=== PATIENT | female | born 1960 | race Caucasian/White ===

== ENCOUNTER 2016-07-06 11:58 | Inpatient (IN) ==
--- NOTE | 2016-07-05 20:13 | Discharge Summary ---
<Hollie Silva - Last Filed: 07/05/16 20:11> Date of Encounter: 07/05/16 - Discharge Diagnosis (1) Loosening of knee joint prosthesis Priority: Primary Status: Acute Qualifiers: Encounter type: initial encounter Qualified Code(s): T84.038A - Mechanical loosening of other internal prosthetic joint, initial encounter; Z96.659 - Presence of unspecified artificial knee joint (2) HTN (hypertension) Priority: Secondary Status: Chronic Qualifiers: Hypertension type: essential hypertension Qualified Code(s): I10 - Essential (primary) hypertension - Discharge Medications Home Medications: Aspirin Enteric Coated [Aspirin EC] 325 mg PO DAILY #21 tablet.dr 07/05/16 [Rx] OxyCODONE Immed Rel [Roxicodone 5 MG] 5 - 10 mg PO Q6HR PRN #40 tablet 07/05/16 [Rx] Aspirin 81 mg PO DAILY 07/06/16 [History] Ferrous Sulfate [Iron] 325 mg PO DAILY 07/06/16 [History] Gabapentin [Neurontin] 600 mg PO TID 07/06/16 [History] Lisinopril [Zestril] 40 mg PO DAILY 07/06/16 [History] Omeprazole [PriLOSEC] 20 mg PO DAILY 07/06/16 [History] Paroxetine [Paxil] 30 mg PO DAILY 07/06/16 [History] SUMAtriptan Succinate [Imitrex] 100 mg PO DAILY PRN 07/06/16 [History] Topiramate [Topamax] 25 mg PO BID 07/06/16 [History] Trazodone HCl 100 - 300 mg PO HS 07/06/16 [History] Allergies/Adverse Reactions: Allergies No Known Allergies Allergy (Verified 07/06/16 12:30) Primary care physician: PCP NO - Patient Status Disposition: Transfer Inpatient Rehab Fac Condition: Good - Discharge Instructions Follow Up With: NO,PCP [Non-Partnered Physician] - - Hospital Course Hospital course: Ms. Salcedo is a 56 year old female - Time Spent with Patient Total time spent providing and/or coordinating discharge services: <Cecilio Camacho - Last Filed: 07/09/16 08:12> Date of Encounter: 07/09/16 Time of Encounter: 08:11 - Discharge Diagnosis (1) Obesity (BMI 35.0-39.9 without comorbidity) Status: Chronic (2) Loosening of knee joint prosthesis Priority: Primary Status: Acute Qualifiers: Encounter type: subsequent encounter Qualified Code(s): T84.038D - Mechanical loosening of other internal prosthetic joint, subsequent encounter; Z96.659 - Presence of unspecified artificial knee joint (3) HTN (hypertension) Priority: Secondary Status: Chronic Qualifiers: Hypertension type: essential hypertension Qualified Code(s): I10 - Essential (primary) hypertension (4) Chronic kidney disease, stage I Priority: Secondary Status: Chronic Primary care physician: PCP NO - Patient Status Functional capacity at discharge: uses cane/walker Overall status at discharge: patient is progressing back to baseline - Hospital Course Hospital course: Ms. Salcedo is a 56 year old female The patient had an uneventful postoperative course. They received antibiotics and physical therapy and were discharged in stable condition. There will follow -up in the office in 2 weeks. Aspirin DVT prophylaxis - Time Spent with Patient Total time spent providing and/or coordinating discharge services:
[2016-07-06] MEDS ORDERED: CeFAZolin Pre 2,000 MG/100 ML 2,000 MG/100 ML BAG IVPB ONE (12:20)
[2016-07-06] MEDS ORDERED: Plasma-Lyte A (PH 7.4) 1,000 ML IVC SCH (12:30)
--- NOTE | 2016-07-06 12:45 | History & Physical Report ---
Date of Encounter: 07/06/16 Time of Encounter: 12:43 24 Hour HP Update - Instructions Instructions: If the History and Physical is less than 30 days old and was completed prior to A.M. admission and or procedure and has NOT been updated on calendar day of procedure please complete this update prior to performing procedure. - Update Patient reports changes in Medical Condition: No Changes in examination, assessment, or condition: No Changes in Medication: No Preop tests/diagnostics Reviewed: Yes Surgery Remains Indicated: Yes Consent for Planned Operative Procedure(s) Verified: Yes - Pre-Operative Checklist Preoperative Checklist Indicated: No Prophylactic Antibiotic Ordered: Yes Is VTE Prophylaxis Indicated?: Yes
[2016-07-06] MEDS ORDERED: Famotidine 20 MG/2 ML VIAL IVP ONE (13:01)
[2016-07-06] MEDS ORDERED: Gabapentin 300 MG CAPSULE PO ONE (13:01)
[2016-07-06] MEDS ORDERED: Ringers Solution, Lactated 1,000 ML IVC SCH (13:30)
--- NOTE | 2016-07-06 13:53 | Anesthesia Evaluation PreOp ---
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 Any Significant HX Other Medical History: Renal (CKD), Other (Anxiety) Anesthesia History: No Prior Anesthetic Complications : No Alcohol Use: none Drug use: none Medications and Allergies Aspirin Enteric Coated [Aspirin EC] 325 mg PO DAILY #21 tablet.dr 07/05/16 [Rx] OxyCODONE Immed Rel [Roxicodone 5 MG] 5 - 10 mg PO Q6HR PRN #40 tablet 07/05/16 [Rx] Aspirin 81 mg PO DAILY 07/06/16 [History] Ferrous Sulfate [Iron] 325 mg PO DAILY 07/06/16 [History] Gabapentin [Neurontin] 600 mg PO TID 07/06/16 [History] Lisinopril [Zestril] 40 mg PO DAILY 07/06/16 [History] Omeprazole [PriLOSEC] 20 mg PO DAILY 07/06/16 [History] Paroxetine [Paxil] 30 mg PO DAILY 07/06/16 [History] SUMAtriptan Succinate [Imitrex] 100 mg PO DAILY PRN 07/06/16 [History] Topiramate [Topamax] 25 mg PO BID 07/06/16 [History] Trazodone HCl 100 - 300 mg PO HS 07/06/16 [History] Allergies No Known Allergies Allergy (Verified 07/06/16 12:30) - Meds/Allergy Pre-op Review Medications Reviewed: Yes Allergies Reviewed: Yes Beta Blockers on Current Med List: No Anesthesia Results - Labs Laboratory Tests 06/22/16 06/22/16 09:15 09:15 Hgb 13.0 Hct 40.4 Plt Count 253 Sodium 140 Potassium 4.6 H Creatinine 1.12 H - Imaging EKG: report reviewed (SR) Anesthesia Exam O2 Sat Height 1.58 m Height 1.58 m Height 1.58 m Weight 96.162 kg Weight 96.162 kg Weight 96.162 kg O2 Sat by Pulse Oximetry 97 O2 Sat by Pulse Oximetry 97 Vital Signs Temp Pulse Resp BP Pulse Ox 98.0 F 62 18 137/91 97 07/06/16 12:15 07/06/16 12:15 07/06/16 12:15 07/06/16 12:15 07/06/16 12:15 Height: 5'3 Weight: 212 lbs NPO (# of Hours): MN Pain Scale: 0 - HEENT Pupil (Motor): Pupils equal, EOMI Mallampati: II Teeth: Normal Oral Opening: Greater than 3 - COOLER WORKER LOC: Oriented COOLER WORKER Motor: Normal RUE, Normal LUE, Normal RLE, Normal LLE, Normal Face COOLER WORKER Sensory: Normal: RUE, LUE, RLE, LLE, Face - Cardiac Rhythm: Regular Murmur: None JVD: No Carotid Bruit: No - Pulmonary Breath Sounds: bilateral Clear Respiratory Effort: Symmetrical Anesthesia Assess/Plan ASA Score: 3 (HTN CKD) Modified Isamar Scale for Level of Consciousness: Cooperative, oriented, and tranquil Anesthetic Plan: General, Regional Monitoring Plan: Standard Monitors Recovery Plan: PACU (Discussed GA and RA, agrees to proceed)
[2016-07-06] MEDS ORDERED: Tetracaine/PF 20 MG/2 ML AMPUL ONE (14:07)
[2016-07-06] MEDS ORDERED: ROPIVACAINE HCL/PF 0.5% 30 ML VIAL ONE (14:07)
[2016-07-06] MEDS ORDERED: Bupivacaine/Clonidine Syringe 1 EACH SYRINGE ONE (14:08)
--- NOTE | 2016-07-06 14:40 | Anesthesia Procedures ---
Date of Encounter: 07/06/16 Time of Encounter: 13:30 Procedures: Anesthesia - Nerve Block Procedure Date: 07/06/16 Time: 14:20 Pre-op Diagnosis: Left Knee Instability Surgical Procedure: Revision Left TKA Checklist: Correct Patient Identifier Correct side: Left Blood Thinner: No Monitor Applied: EKG, BP, Pulse Oximetry Supplemental Oxygen via Nasal Cannula (L/min): 2 Sedation: Versed (mg): 3 Sedation: Fentanyl (mcg): 100 Indication: Post Op Analgesia Pre-op Neuro Deficits: No Block Type: Femoral, Other (IPACK) Catheter placed: No Depth at skin (cm): 2 Sterile Technique: Yes Ultrasound used: Yes Anatomy identified: Yes Visual spread of Local: Yes Neuro Stimulation: Yes Nerve Stimulator Range: >0.4 - 0.6 mA Blood on Needle Aspiration: No Smooth Injection of Local: Yes Pain with Injection of Local: No Prep: Chlorhexadine Needle: 22 x 50 mm Stimuplex Local: 0.25% Bupivicaine w/Clonidine 20 mcg/cc, Tetracaine (20), Ropivacaine ( 0.5%) Volume (cc): 30 Number of Attempts: 1 Complications: None/effective block Vitals: Vital Signs/O2 Sat/Glucose, Most Current Temp Pulse Resp BP Pulse Ox 07/06/16 14:32 70 14 119/67 97 07/06/16 14:21 70 14 125/86 97 07/06/16 14:10 56 16 136/82 99 07/06/16 12:32 98.0 F 62 18 137/91 97 07/06/16 12:15 98.0 F 62 18 137/91 97
[2016-07-06] MEDS ORDERED: *HR* Midazolam HCl 2 MG/2 ML VIAL ONE ×2 (15:04)
[2016-07-06] MEDS ORDERED: Ondansetron 4 MG/2 ML VIAL ONE (15:04)
[2016-07-06] MEDS ORDERED: Lidocaine -MPF 2% 2 ML VIAL ONE (15:04)
[2016-07-06] MEDS ORDERED: *HR* Propofol 200 MG/20 ML VIAL IVP ONE (15:04)
[2016-07-06] MEDS ORDERED: *HR* FentaNYL (PF) 100 MCG/2 ML VIAL ONE (15:04)
[2016-07-06] MEDS ORDERED: Ondansetron 4 MG/2 ML VIAL IVP PRN ×2 (15:07→17:16)
[2016-07-06] MEDS ORDERED: *HR* Labetalol 20 MG/4 ML SYRINGE IVP PRN (15:07)
--- NOTE | 2016-07-06 15:56 | Orthopedic Operative Note ---
Date of procedure: 07/06/16 Pre-op diagnosis: Aseptic loosening unstable right total knee Post-op diagnosis: same Procedure: Procedure: Right revision total knee Estimated blood loss: 500 mL Hardware: Metal and polyethylene replacement. Biomet SS K 55 left femur 18 x 80 stem, 63 stem tibia, 14 x 80 stem. 20 constrained Sanam, Exam Under anesthesia: Full extension and flexion to 90 degrees significant varus valgus instability Procedural Notes: Unstable total knee, aseptic loosening tibia and femur. Operative procedure: The patient was brought to the operating room and placed on the operating room table. After general anesthesia was administered the operative knee was examined. Findings were noted in the exam under anesthesia. The operative extremity was prepped and draped in sterile surgical fashion. The patient received IV antibiotics prior to skin incision. A standard midline incision was made centered over the patella through the old incision. The incision was made through the skin and subcutaneous tissue. A medial parapatellar tendon approach was performed. Care was taken to preserve tissue along the medial aspect of the patella. And to protect the patella tendon. The deep MCL was released off the medial tibia. The infra patella fat pad was excised. Fluid was encountered this was normal joint fluid, Cultures were obtained and gram . The knee was brought into flexion the poly-was removed. The interface between the patient's femoral component and distal femur were disrupted with a osteotome and oscillating saw the femoral component was grossly loose. Femoral component was removed removed without significant bone loss. Attention was then turned to the tibial component. The same technique was used to remove the tibial component by disrupting the interface between the patient's tibial component and the patients proximal tibia. The tibial component was loose, was removed without significant bone loss. The tibia was sized to a 63 it was reamed up to a 14 x 80. Trial had good fit and fixation. The femur was sized to a 55, was reamed up to a 18 x 80. The finishing guide was seated and the box cut was made. The trial had good fit and fixation. Both trial components were seated and the 20 constrained Sanam was seated and secured. The knee had full flexion and full extension with no instability. The trial components were removed. The knee sat for 2 minutes with a Betadine saline solution. It was irrigated out with 2 L of pulse irrigation. The components were assembled on the back table, the tibia cemented first followed by the femur. The 20 constrained liner was seated and secure. The knee was brought to full extension while the cement hardened. After the cement hardened the knee was irrigated out again. The extensor mechanism was closed with a running #2 Fiberwire suture and a running #2 PDS suture. The deep tissue was irrigated and closed deep with #1 PDS suture superficially with 0 PDS suture. The skin was closed with skin geetha. The patient was placed in a sterile dressing and postoperative brace. They were extubated and transferred to recovery room in stable condition. Anesthesia: GETRk Surgeon: Cecilio Camacho Assisted Living Director: Hollie Silva Condition: stable Disposition: PACU
[2016-07-06] MEDS: *HR* HYDROmorphone (PF) 1 MG/ML SYRINGE IVP PRN ×2 (16:23→16:37)
--- NOTE | 2016-07-06 16:56 | Anesthesia Evaluation Post Op ---
Date of Encounter: 07/06/16 Time of Encounter: 16:55 - Vital Signs Vital Signs: Vital Signs/O2 Sat, Most Current Temp Pulse Resp BP Pulse Ox 97.6 F 78 10 142/92 99 07/06/16 16:49 07/06/16 16:49 07/06/16 16:49 07/06/16 16:49 07/06/16 16:49 - Lungs Lungs: Clear Ascult./Percussion - Airway Airway: Non-obstructed - Cardiovascular Regular Rate - Mental Status Mental Status: Alert & Oriented, Answers Appropriately - Pain Pain Scale: 0 - Nausea Vomiting Nausea Vomiting: Not Present - Hydration Hydration: Ice chips, Has not voided - Discharge PostOp Status: Transfer Patient to floor
[2016-07-06 17:01] LABS: Hematocrit 37.6 % (35.3-44.9); Hemoglobin 11.8 g/dL (11.5-15.4)
[2016-07-06] MEDS ORDERED: Temazepam 15 MG CAPSULE PO PRN (17:16)
[2016-07-06] MEDS ORDERED: MOM Conc 10 ML UD.LIQ PO PRN (17:16)
[2016-07-06] MEDS ORDERED: SUMAtriptan succinate 50 MG TABLET PO PRN (17:16)
[2016-07-06] MEDS ORDERED: *HR* OxyCODONE Immed Rel 5 MG TABLET PO PRN (17:16)
[2016-07-06] MEDS ORDERED: Naloxone 0.4 MG/ML INJ IVP PRN (17:16)
[2016-07-06] MEDS ORDERED: Sennosides 8.6 MG TABLET PO PRN (17:16)
[2016-07-06] MEDS ORDERED: *HR* Enoxaparin 30 MG/0.3 ML SYRINGE SQ SCH (18:00)
[2016-07-06] MEDS: ceFAZolin 2,000 MG in D5% in Water 100 ML IVPB SCH (18:21)
[2016-07-06] MEDS: Gabapentin 300 MG CAPSULE PO SCH ×2 (18:22→20:53)
[2016-07-06] MEDS: *HR* Enoxaparin 30 MG/0.3 ML SYRINGE SQ SCH (18:22)
[2016-07-06] MEDS: Ringers Solution, Lactated 1,000 ML IVC SCH (19:13)
[2016-07-06] MEDS: Topiramate 25 MG TABLET PO SCH (20:54)
[2016-07-06] MEDS: traZODone 50 MG TABLET PO SCH (22:07)
[2016-07-07] MEDS: *HR* HYDROmorphone (PF) 1 MG/ML SYRINGE IVP PRN ×4 (00:25→23:44)
[2016-07-07] MEDS: ceFAZolin 2,000 MG in D5% in Water 100 ML IVPB SCH (00:26)
[2016-07-07] MEDS: *HR* OxyCODONE Immed Rel 5 MG TABLET PO PRN ×5 (04:53→22:33)
[2016-07-07 05:01] LABS: Hematocrit 33.2 % (35.3-44.9); Hemoglobin 10.4 g/dL (11.5-15.4)
[2016-07-07 05:22] LABS: BUN/Creatinine Ratio 19 (6-26); Blood Urea Nitrogen 21 mg/dL (7-20); Calcium 8.7 mg/dL (8.6-10.8); Carbon Dioxide 25 mEq/L (19-29); Chloride 106 mEq/L (98-109); Glucose 143 mg/dL (70-99); Osmolality,Calculated 291 (280-300); Potassium 4.9 mEq/L (3.5-4.5); Sodium 138 mEq/L (136-145); eGFR For African Americans > 60 (> 60); eGFR For Non-African Americans 52 (> 60)
[2016-07-07] MEDS: *HR* Enoxaparin 30 MG/0.3 ML SYRINGE SQ SCH ×2 (06:06→17:13)
--- NOTE | 2016-07-07 06:26 | Orthopedics Progress Note ---
Date of Encounter: 07/07/16 Time of Encounter: 06:26 - Assessment and Plan (1) Obesity (BMI 35.0-39.9 without comorbidity) Current Visit: Yes Status: Chronic (2) Loosening of knee joint prosthesis Current Visit: Yes Status: Acute Qualifiers: Encounter type: subsequent encounter Qualified Code(s): T84.038D - Mechanical loosening of other internal prosthetic joint, subsequent encounter; Z96.659 - Presence of unspecified artificial knee joint (3) HTN (hypertension) Current Visit: Yes Status: Chronic Qualifiers: Hypertension type: essential hypertension Qualified Code(s): I10 - Essential (primary) hypertension Subjective Interval history: Patient was seen this morning doing well without complaints. Afebrile vital signs stable. Operative extremity: Neurovascularly intact Dressing clean dry and intact Calves nontender Assessment and plan: Continue with postoperative care Hematocrit 33 Objective Vital signs: Vital Signs Temp Pulse Resp BP Pulse Ox 07/07/16 06:23 98.1 F 59 16 105/69 94 07/07/16 04:58 97.4 F L 73 17 99/66 97 07/07/16 00:32 97.9 F 51 17 128/82 97 07/06/16 20:20 97.6 F 80 16 107/73 98 07/06/16 19:19 97.6 F 63 15 139/83 95 07/06/16 18:23 97.5 F L 71 15 109/71 95 07/06/16 17:55 97.5 F L 68 15 112/78 97 07/06/16 17:22 97.5 F L 72 14 101/64 96 07/06/16 17:20 97.5 F L 72 14 101/64 96 07/06/16 16:59 97.6 F 80 12 123/92 98 07/06/16 16:49 97.6 F 78 10 142/92 99 07/06/16 16:39 77 16 136/96 100 07/06/16 16:29 78 16 137/98 98 07/06/16 16:19 97.3 F L 80 16 86/63 100 07/06/16 14:32 70 14 119/67 97 07/06/16 14:21 70 14 125/86 97 07/06/16 14:10 56 16 136/82 99 07/06/16 12:32 98.0 F 62 18 137/91 97 07/06/16 12:15 98.0 F 62 18 137/91 97 Intake and Output 07/06/16 07/06/16 07/07/16 15:59 23:59 07:59 Intake Total 100 / 100 100 / 100 Output Total 500 / 500 200 / 200 Balance 100 / 100 -400 / -400 -200 / -200 Intake: IV Fluids 100 / 100 100 / 100 Ancef Premix 2,000 MG/100 100 / 100 ML 2,000 mg In 100 ml @ 200 mls/hr IVPB PREOP ONE Rx#:[id number] Ancef 2,000 MG In 100 / 100 Dextrose 5% 100 ML @ 200 mls/hr IVPB Q8HR JOSS Rx#: [id number] Output: Urine 200 / 200 Estimated Blood Loss 500 / 500 Other: # Voids 1 Weight 96.162 kg - Labs CBC & BMP: 07/07/16 04:29 07/07/16 04:29 Labs: Abnormal lab results Hgb 10.4 g/dL (11.5-15.4) L 07/07/16 04:29 Hct 33.2 % (35.3-44.9) L 07/07/16 04:29 Potassium 4.9 mEq/L (3.5-4.5) H 07/07/16 04:29 BUN 21 mg/dL (7-20) H 07/07/16 04:29 Est GFR (Non-Af Amer) 52 (> 60) L 07/07/16 04:29 Glucose 143 mg/dL (70-99) H 07/07/16 04:29 - VTE Documentation of Mechanical Device: Venous foot pump, device Consult Discharge Plan - Plan Referrals: NO,PCP [Primary Care Provider] -
[2016-07-07] MEDS: Aspirin 81 MG TAB.CHEW PO SCH (09:09)
[2016-07-07] MEDS: Topiramate 25 MG TABLET PO SCH ×2 (09:09→21:12)
[2016-07-07] MEDS: Gabapentin 300 MG CAPSULE PO SCH ×3 (09:09→21:12)
[2016-07-07] MEDS: Lisinopril 20 MG TABLET PO SCH (09:18)
[2016-07-07] MEDS: traZODone 50 MG TABLET PO SCH (21:12)
[2016-07-08] MEDS: *HR* OxyCODONE Immed Rel 5 MG TABLET PO PRN ×3 (04:00→21:09)
[2016-07-08] MEDS: *HR* Enoxaparin 30 MG/0.3 ML SYRINGE SQ SCH ×2 (05:03→17:34)
[2016-07-08] MEDS: *HR* HYDROmorphone (PF) 1 MG/ML SYRINGE IVP PRN (05:03)
[2016-07-08 05:32] LABS: Hematocrit 32.1 % (35.3-44.9); Hemoglobin 10.1 g/dL (11.5-15.4)
--- NOTE | 2016-07-08 06:31 | Orthopedics Progress Note ---
Date of Encounter: 07/08/16 Time of Encounter: 06:31 - Assessment and Plan (1) Obesity (BMI 35.0-39.9 without comorbidity) Current Visit: Yes Status: Chronic (2) Loosening of knee joint prosthesis Current Visit: Yes Status: Acute Qualifiers: Encounter type: subsequent encounter Qualified Code(s): T84.038D - Mechanical loosening of other internal prosthetic joint, subsequent encounter; Z96.659 - Presence of unspecified artificial knee joint (3) HTN (hypertension) Current Visit: Yes Status: Chronic Qualifiers: Hypertension type: essential hypertension Qualified Code(s): I10 - Essential (primary) hypertension (4) Chronic kidney disease, stage I Current Visit: Yes Status: Chronic Subjective Interval history: Patient was seen this morning doing well without complaints. Afebrile vital signs stable. Operative extremity: Neurovascularly intact Dressing clean dry and intact Calves nontender Assessment and plan: Continue with postoperative care Hematocrit 32 discharged today if authorized Objective Vital signs: Vital Signs Temp Pulse Resp BP Pulse Ox 07/08/16 06:27 99.1 F 111 20 120/77 94 07/08/16 04:55 100.5 F H 100 16 125/85 93 07/07/16 23:39 98.9 F 86 16 141/84 94 07/07/16 19:20 98.7 F 87 16 106/55 93 07/07/16 15:40 99.0 F 64 16 143/86 99 07/07/16 10:40 97.7 F 56 16 135/81 99 Intake and Output 07/07/16 07/07/16 07/08/16 15:59 23:59 07:59 Intake Total 700 / 700 600 / 600 350 / 350 Balance 700 / 700 600 / 600 350 / 350 Intake: Oral 700 / 700 600 / 600 350 / 350 Other: Meal Breakfast Dinner Percent of Meal Consumed 50% 100% # Voids 1 1 1 - Labs CBC & BMP: 07/08/16 05:12 07/08/16 05:12 Labs: Abnormal lab results Hgb 10.1 g/dL (11.5-15.4) L 07/08/16 05:12 Hct 32.1 % (35.3-44.9) L 07/08/16 05:12 BUN 26 mg/dL (7-20) H 07/08/16 05:12 Creatinine 1.25 mg/dL (0.57-1.11) H 07/08/16 05:12 Est GFR ( Amer) 54 (> 60) L 07/08/16 05:12 Est GFR (Non-Af Amer) 44 (> 60) L 07/08/16 05:12 Glucose 132 mg/dL (70-99) H 07/08/16 05:12 - VTE Documentation of Mechanical Device: Venous foot pump, device Consult Discharge Plan - Plan Referrals: NO,PCP [Non-Partnered Physician] -
[2016-07-08] MEDS: Acetaminophen IV 1,000 MG/100 ML INFUS..BTL IVPB SCH ×3 (08:21→22:39)
[2016-07-08] MEDS: Aspirin 81 MG TAB.CHEW PO SCH (08:22)
[2016-07-08] MEDS: Lisinopril 20 MG TABLET PO SCH (08:22)
[2016-07-08] MEDS: Topiramate 25 MG TABLET PO SCH ×2 (08:22→21:10)
[2016-07-08] MEDS: Gabapentin 300 MG CAPSULE PO SCH ×3 (08:23→21:10)
[2016-07-08] MEDS: Ringers Solution, Lactated 1,000 ML IVC SCH ×2 (14:09→14:10)
[2016-07-08 14:34] LABS: Bilirubin,Urine Negative (Negative); Blood,Urine Negative (Negative); Clarity,Urine Clear (Clear); Color,Urine Yellow (Yellow); Glucose,Urine (UA) Normal (Normal); Ketones,Urine Negative (Negative); Leukocyte Esterase,Urine Negative (Negative); Nitrite,Urine Negative (Negative); Protein,Urine Negative (Neg-Trace); Specific Gravity,Urine 1.016 (1.010-1.025); Urobilinogen,Urine Normal (Normal)
[2016-07-08] MEDS: traZODone 50 MG TABLET PO SCH (21:10)
[2016-07-09] MEDS: *HR* OxyCODONE Immed Rel 5 MG TABLET PO PRN ×3 (01:06→10:43)
[2016-07-09] MEDS: *HR* Enoxaparin 30 MG/0.3 ML SYRINGE SQ SCH (06:12)
[2016-07-09] MEDS: Acetaminophen IV 1,000 MG/100 ML INFUS..BTL IVPB SCH ×2 (06:12→09:28)
[2016-07-09] MEDS: Gabapentin 300 MG CAPSULE PO SCH (08:02)
[2016-07-09] MEDS: Lisinopril 20 MG TABLET PO SCH (08:03)
[2016-07-09] MEDS: Topiramate 25 MG TABLET PO SCH (08:03)
[2016-07-09] MEDS: Aspirin 81 MG TAB.CHEW PO SCH (08:03)
--- NOTE | 2016-07-09 08:12 | Orthopedics Progress Note ---
Date of Encounter: 07/09/16 Time of Encounter: 08:12 - Assessment and Plan (1) Obesity (BMI 35.0-39.9 without comorbidity) Current Visit: Yes Status: Chronic (2) Loosening of knee joint prosthesis Current Visit: Yes Status: Acute Qualifiers: Encounter type: subsequent encounter Qualified Code(s): T84.038D - Mechanical loosening of other internal prosthetic joint, subsequent encounter; Z96.659 - Presence of unspecified artificial knee joint (3) HTN (hypertension) Current Visit: Yes Status: Chronic Qualifiers: Hypertension type: essential hypertension Qualified Code(s): I10 - Essential (primary) hypertension (4) Chronic kidney disease, stage I Current Visit: Yes Status: Chronic Subjective Interval history: Patient was seen this morning doing well without complaints. Afebrile vital signs stable. Operative extremity: Neurovascularly intact Dressing clean dry and intact Calves nontender Assessment and plan: Continue with postoperative care discharged today Objective Vital signs: Vital Signs Temp Pulse Resp BP Pulse Ox 07/09/16 06:40 98.4 F 83 16 104/76 95 07/09/16 04:18 98.2 F 78 16 108/70 93 07/09/16 01:51 97.6 F 90 15 118/63 92 07/09/16 01:28 97.6 F 90 15 118/63 92 07/08/16 20:20 98.1 F 65 16 113/73 96 07/08/16 15:07 98.5 F 72 18 135/75 94 07/08/16 11:02 98.0 F 64 18 104/69 94 Intake and Output 07/08/16 07/09/16 07/09/16 23:59 07:59 15:59 Intake Total 500 / 500 Output Total 300 / 300 Balance 200 / 200 Intake: IV Fluids 200 / 200 Ofirmev 1,000 mg/100 ml 1 200 / 200 ,000 mg In 100 ml @ 400 mls/hr IVPB Q6H JOSS Rx#: [id number] Oral 300 / 300 Output: Urine 300 / 300 Other: # Voids 1 1 - Labs CBC & BMP: 07/08/16 05:12 07/08/16 05:12 Labs: Abnormal lab results Hgb 10.1 g/dL (11.5-15.4) L 07/08/16 05:12 Hct 32.1 % (35.3-44.9) L 07/08/16 05:12 BUN 26 mg/dL (7-20) H 07/08/16 05:12 Creatinine 1.25 mg/dL (0.57-1.11) H 07/08/16 05:12 Est GFR ( Amer) 54 (> 60) L 07/08/16 05:12 Est GFR (Non-Af Amer) 44 (> 60) L 07/08/16 05:12 Glucose 132 mg/dL (70-99) H 07/08/16 05:12 - VTE Documentation of Mechanical Device: Venous foot pump, device Consult Discharge Plan - Plan Referrals: NO,PCP [Non-Partnered Physician] -
[2016-07-09 10:17] LABS: BUN/Creatinine Ratio 23 (6-26); Blood Urea Nitrogen 21 mg/dL (7-20); Calcium 8.5 mg/dL (8.6-10.8); Carbon Dioxide 28 mEq/L (19-29); Chloride 103 mEq/L (98-109); Glucose 127 mg/dL (70-99); Osmolality,Calculated 289 (280-300); Potassium 3.8 mEq/L (3.5-4.5); Sodium 137 mEq/L (136-145); eGFR For African Americans > 60 (> 60); eGFR For Non-African Americans > 60 (> 60)
[2016-07-09 10:49] LABS: Basophils % 0.2 %; Eosinophils # 0.2 K/mcL (0.0-0.6); Eosinophils % 2.7 %; Hematocrit 25.8 % (35.3-44.9); Hemoglobin 8.3 g/dL (11.5-15.4); Immature Granulocytes % 0.4 % (0-4); Lymphocytes # 1.4 K/mcL (0.6-4.6); Lymphocytes % 24.6 %; Mean Corpuscular HGB Conc 32.2 g/dL (31.6-35.5); Mean Corpuscular Hemoglobin 30.7 pg (28.0-33.3); Mean Corpuscular Volume 95.6 fL (83.0-100.0); Mean Platelet Volume 9.6 fL (9.4-12.4); Monocytes # 0.5 K/mcL (0.0-1.3); Monocytes % 9.5 %; Neutrophils # 3.5 K/mcL (1.6-8.9); Platelet Count 217 K/mcL (140-400); Red Cell Distribution Width 13.2 % (11.5-14.5); Segmented Neutrophils % 62.6 %
[2016-07-09 12:13] VITALS: BP 107/68
== END 2016-07-09 13:15 | DRG 468 ==
LOC: SAMDAY 11:58 → 3NENU 17:15
PROVIDERS: ADMIT Orthopaedic Surgery; ATTEND Orthopaedic Surgery